=== PATIENT | female | born 1965 | race Caucasian/White ===

== ENCOUNTER → 2018-10-12 06:00 | Outpatient (CLI) | payer OTHER ==
[~2018-10-12 06:00] MED LIST: ALTACE2.5 MG PO; CYMBALTA30 MG PO; GLUMETZA500 MG PO; NEURONTIN600 MG PO; NORV PO; ROBAXIN PO; ZOCOR20 MG PO; [UNRECOGNIZED DRUG - OTHER] PO; [UNRECOGNIZED DRUG - OTHER] PO; [UNRECOGNIZED DRUG - OTHER] PO
== END | disposition home or self-care (01) ==
LOC: LAB 06:00 → CIR.AMB 10-14 07:00 → EDSTATUS 10-14 07:00 → CIR.AMB 10-14 08:36
DX: M43.16 Spondylolisthesis, lumbar region (principal); M43.06 Spondylolysis, lumbar region; Z01.810 Encounter for preprocedural cardiovascular examination; Z01.812 Encounter for preprocedural laboratory examination